=== PATIENT | female | born 1950 | race African-American/Black ===

== ENCOUNTER 2016-08-22 17:39 | Emergency (ER) | payer MEDICARE, OTHER ==
[~2016-08-22] VITALS: Ht 160 cm; Wt 108.0 kg
[~2016-08-22 17:39] MED LIST: ASPIRIN325 MG ORAL; ATENOLOL25 MG ORAL; CALCIUM 500 MG1 EACH PO; CILOXAN 0.3% O1 DROP LEFT EYE; DILTIAZEM 24HR120 M1 ORAL; GENTAK5 ML LEFT EYE; KEFLEX500 MG ORAL; LISINOPRIL10 MG ORAL; METAMUCIL1 PK1 GT; NITROSTAT0.4 M2 SL; OCUFLOX5 ML OP; ONDANSETRON ODT4 MG ORAL; PATANOL1 DROP BOTH EYES; PEPCID20 MG ORAL; SIMVASTATIN10 MG ORAL; TYLENOL 8 HOUR650 M1 ORAL
--- NOTE | 2016-08-22 18:43 | Emergency Room Report ---
History of Present Illness General Chief Complaint: Lower Extremity Injury Source: Patient Present Illness HPI 65 YO F with known OA presents with left knee pain s/p accidental trip and fall at store. Denies hitting head, LOC, or pain anywhere else. Denies open wound. Denies precipitating chest pain, SOB, palps, abd pain. Has felt well otherwise. Able to ambulate. Allergies: Coded Allergies: CODEINE (Verified Allergy, Severe, rash, 11/28/13) HYDROCODONE (Verified Allergy, Severe, rash, 11/28/13) PROPOXYPHENE (Verified Allergy, Severe, rash, 11/28/13) OXYCODONE (Unverified Allergy, Unknown, 05/26/14) Patient History Past Medical History: see triage record, old chart reviewed, other - OA Past Surgical History: none Pertinent Family History: none Social History: Denies: alcohol use, drug use, smoking Now: No Immunizations: UTD Reviewed Nursing Documentation: PMH: Agreed, PSxH: Agreed Nursing Documentation-PMH Past Medical History: No History, Except For Hx Cardiac Problems: Yes - [place], 1994, CABGx3 2008, High Cholesterol Hx Hypertension: Yes Hx Cerebrovascular Accident: Yes - 1995 Review of Systems All Other Systems: negative except mentioned in HPI Physical Exam Vital Signs Date Time Temp Pulse Resp B/P Pulse Ox O2 Delivery O2 Flow Rate FiO2 08/22/16 17:53 97.3 65 14 161/67 100 Room Air Sp02 EP Interpretation: reviewed, normal General Appearance: normal inspection, well appearing, no apparent distress, alert, GCS 15, non-toxic, obese Head: normocephalic, atraumatic Eyes: bilateral eye EOMI, bilateral eye PERRL ENT: normal ENT inspection, hearing grossly normal, normal voice Neck: normal inspection, full range of motion, supple, no bony tend Respiratory: normal inspection, lungs clear, normal breath sounds, no respiratory distress, no retraction, no wheezing Cardiovascular #1: regular rate, rhythm, no edema Gastrointestinal: normal inspection, normal bowel sounds, non tender, soft, no guarding, no hernia Genitourinary: no CVA tenderness Musculoskeletal: other - Right knee: ROM intact. Hyperasthesia to any palpation. No obvious deformity or swelling. Non tender to right tib/fib, ankle, foot, thigh Neurologic: normal inspection, alert, oriented x3, responsive, signals analyst III-XII nml as tested, motor strength/tone normal, speech normal Psychiatric: normal inspection, judgement/insight normal, mood/affect normal Skin: normal inspection, normal color, no rash Medical Decision Making Diagnostic Impression: Primary Impression: Right knee pain Qualified Codes: M25.561 - Pain in right knee Additional Impression: Fall Qualified Codes: W19.XXXA - Unspecified fall, initial encounter ER Course 65 YO F with right knee pain s/p accidental fall. VSS. Afebrile. No obvious trauma Xray 3 view of knee shows significant arthritis but no acute fx, dislocation or soft tissue swelling Pain improved with ice, analgesia in ED Rx tylenol, ICE, non-weight bearing and PMD followup DC home Other X-Ray Diagnostic Results Other X-Ray Diagnostic Results : X-Ray Ordered: right knee EP Interpretation: Yes Findings: no fractures, no dislocation, no soft tissue swelling Number of Views: 3 Last Vital Signs Date Time Temp Pulse Resp B/P Pulse Ox O2 Delivery O2 Flow Rate FiO2 08/22/16 17:53 97.3 65 14 161/67 100 Room Air Status: improved Disposition: HOME, SELF-CARE Scripts Acetaminophen* (ACETAMINOPHEN EXTRA STRENGTH*) 500 Mg Tablet 500 MG ORAL Q8H Y for Fever/Headache/Mild Pain, #30 TAB Prov: MICHAEL MARCUS M.D. 08/22/16 MICHAEL MARCUS M.D. Aug 22, 2016 18:43
[2016-08-22] MEDS ORDERED: ACETAMINOPHEN500 M3 ORAL (18:53)
[2016-08-22 19:13] VITALS: BP 153/71
--- NOTE | 2016-08-23 11:37 | Diagnostic Imaging Report ---
Indication: PAIN Technique: 3 views of the right knee Comparison: 06/15/2013 Findings:There is a questionable lucency through the patella seen on the oblique view and questionably on AP view. No other evidence of acute fracture. No dislocation. No prepatellar soft tissue swelling. There is lateral compartmental degenerative joint space narrowing. There are medial and lateral and patellofemoral osteophytes. There may be a suprapatellar effusion. Impression:Questionable nondisplaced patellar fracture. Correlate with clinical findings, consider or sectional imaging if clinically indicated. Degenerative changes, as described Possible effusion Findings discussed by phone with Dr. Yates in the emergency room at the time of interpretation
== END 2016-08-22 19:23 | disposition home or self-care (01) ==
LOC: EMR 18:55
DX: M25.561 Pain in right knee (principal); Z88.6 Allergy status to analgesic agent; M19.90 Unspecified osteoarthritis, unspecified site; I25.2 Old myocardial infarction; Z95.1 Presence of aortocoronary bypass graft; E78.00 Pure hypercholesterolemia, unspecified; I10 Essential (primary) hypertension; Z86.73 Personal history of transient ischemic attack (TIA), and cerebral infarction without residual deficits; W01.0XXA Fall on same level from slipping, tripping and stumbling without subsequent striking against object, initial encounter; Y92.512 Supermarket, store or market as the place of occurrence of the external cause; Y99.8 Other external cause status
CPT/HCPCS: 99283

== ENCOUNTER 2016-08-26 06:14 | Emergency (ER) | payer MEDICARE, OTHER ==
[~2016-08-26] VITALS: Ht 160 cm; Wt 104.3 kg
[~2016-08-26 06:14] MED LIST changes: +ACETAMINOPHEN500 M3 ORAL
--- NOTE | 2016-08-26 06:43 | Emergency Room Report ---
History of Present Illness General Chief Complaint: Pain Source: Patient Present Illness HPI Patient presents with right knee pain. She fell on Sunday. She's been able to walk with her walker. She had x-rays done there were not remarkable. Her doctor called her and sent her to have a CAT scan done to rule out a fracture. The patient's been taking ibuprofen. She is unable to take any other codeine derivative. She states ibuprofen is been helping. She stable family with her walker however the pain is severe. The pain does not radiate. There is no swelling in the ankle and no calf pain. Pain 10/10 when walk or move. Sharp aching. Some minimal radiation up thigh. She denies any chest pain, shortness of breath, cough, fevers, sore throat, rashes aside from venous disease. The patient's had open-heart surgery and also carotid endarterectomy. She's caregiver. 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 Last Menstrual Period: unk Now: No Reviewed Nursing Documentation: PMH: Agreed, PSxH: Agreed Nursing Documentation-PMH Hx Cardiac Problems: Yes - [place], 1994, CABGx3 2008, High Cholesterol Hx Hypertension: Yes Hx Cerebrovascular Accident: Yes - 1995 Review of Systems All Other Systems: negative except mentioned in HPI Physical Exam Vital Signs Date Time Temp Pulse Resp B/P Pulse Ox O2 Delivery O2 Flow Rate FiO2 08/26/16 06:17 98.1 75 16 129/88 100 Room Air Sp02 EP Interpretation: reviewed, normal General Appearance: well appearing, no apparent distress, obese Head: normocephalic, atraumatic Eyes: bilateral eye PERRL, bilateral eye normal inspection ENT: hearing grossly normal, normal voice Neck: full range of motion, supple Respiratory: no respiratory distress, speaking full sentences Cardiovascular #2: 2+ dorsalis pedis (R) Gastrointestinal: overweight Musculoskeletal: digits/nails normal, no calf tenderness, pelvis stable - ankle not tender, decreased range of mation - knee, other - No effusion, patellar and medial tenderness of the right knee. Ligaments are intact. Range of motion is somewhat decreased with flexion. Ankle and hip are nontender. The left knee is nontender and there is good range of motion. There is evidence of degenerative joint disease. Neurologic: alert, normal gait, grossly normal Psychiatric: mood/affect normal Skin: normal color, warm/dry, other - venous disease Medical Decision Making Diagnostic Impression: Primary Impression: Patellar fracture Qualified Codes: S82.024A - Nondisplaced longitudinal fracture of right patella, initial encounter for closed fracture ER Course The patient presents with right knee pain after a fall. Differential includes contusion, sprain, internal cartilage damage and also fracture. Patient is here for a CAT scan. This will be ordered. In addition the patient will be given ibuprofen. She drove herself here. Patient allergic to all opiates ( according to her). Xrays with patellar fracture Immobilizer place by tech. Excellent position with improved pain control. Neurovasc normal and checked by me. Patient stable for outpatient observation and treatment. CT/MRI/US Diagnostic Results CT/MRI/US Diagnostic Results : Imaging Test Ordered: r knee Impression longitudinal patellar fracture with djd Last Vital Signs Date Time Temp Pulse Resp B/P Pulse Ox O2 Delivery O2 Flow Rate FiO2 08/26/16 08:35 98.1 77 16 124/89 99 Room Air Status: improved Disposition: HOME, SELF-CARE Condition: Improved Scripts Acetaminophen (Tylenol) 325 Mg Tablet 650 MG ORAL Q6H Y for Prn Pain/Headache/Temp > 101, #30 TAB 0 Refills Prov: Carl Bowers M.D. 08/26/16 Ibuprofen* (MOTRIN*) 600 Mg Tablet 600 MG ORAL Q8H Y for For Pain, #30 TAB 0 Refills Prov: Carl Bowers M.D. 08/26/16 Carl Bowers M.D. Aug 26, 2016 06:43
[2016-08-26 06:45] VITALS: BP 126/90
[2016-08-26] MEDS ORDERED: IBUPROFEN600 MG ORAL (08:17)
[2016-08-26] MEDS ORDERED: TYLENOL325 MG ORAL (08:17)
[2016-08-26 08:32] VITALS: BP 124/89
[2016-08-26 08:35] VITALS: BP 124/89
--- NOTE | 2016-08-26 10:16 | Diagnostic Imaging Report ---
Indication: Right knee trauma Technique: Continuous helical imaging of the right knee was performed in the transaxial plane. Coronal 2-D reformatted images were also generated. Study obtained in a [employer] [address] total DLP 214 mGycm CTD/vol 11 mGy Comparison: None Findings: There is an acute nondisplaced fracture of the patella. The fracture line is oriented sagittally extending from the lateral patellar facet to the anterior part of the patella a relatively midline in location. No definite additional fractures are seen. There is moderate to severe hypertrophic osteoarthritis of the knee characterized by osteophyte formation joint space narrowing in all 3 compartments of knee. The bones are osteopenic. There is a small joint effusion. There is a ossified loose body in the posterior aspect of the joint just posterior to the posterior cruciate ligament. Impression: Acute patellar fracture. Osteoporosis Severe osteoarthropathy
== END 2016-08-26 08:37 | disposition home or self-care (01) ==
LOC: EMR 07:38
DX: S82.024A Nondisplaced longitudinal fracture of right patella, initial encounter for closed fracture (principal); W19.XXXA Unspecified fall, initial encounter; Y93.9 Activity, unspecified; Y92.9 Unspecified place or not applicable; Z88.6 Allergy status to analgesic agent; I25.2 Old myocardial infarction; Z86.73 Personal history of transient ischemic attack (TIA), and cerebral infarction without residual deficits; I10 Essential (primary) hypertension
CPT/HCPCS: 99284